=== PATIENT | male | born 1980 | race Caucasian/White ===

== ENCOUNTER 2019-03-27 19:07 | Emergency (ER) | payer OTHER, BC ==
--- NOTE | 2019-03-27 19:35 | RADIOLOGY REPORT (SQ) ---
EXAM DESCRIPTION: CHEST SINGLE VIEW COMPLETED DATE/TIME: 03/27/2019 7:25 pm REASON FOR STUDY: STROKE ALERT COMPARISON: None. EXAM PARAMETERS: NUMBER OF VIEWS: One view. TECHNIQUE: Single frontal radiographic view of the chest acquired. RADIATION DOSE: NA LIMITATIONS: None. FINDINGS: LUNGS AND PLEURA: No opacities, masses or pneumothorax. No pleural effusion. MEDIASTINUM AND HILAR STRUCTURES: No masses. Contour normal. HEART AND VASCULAR STRUCTURES: Heart normal in size. Normal vasculature. BONES: No acute findings. HARDWARE: None in the chest. OTHER: No other significant finding. IMPRESSION: NO ACUTE RADIOGRAPHIC FINDING IN THE CHEST. TECHNICAL DOCUMENTATION: JOB ID: [id number] [employer]- All Rights Reserved Reading location - IP/workstation name: [email or web address]
--- NOTE | 2019-03-27 19:37 | RADIOLOGY REPORT (SQ) ---
EXAM DESCRIPTION: CT HEAD WITHOUT COMPLETED DATE/TIME: 03/27/2019 7:26 pm REASON FOR STUDY: stroke symptoms COMPARISON: None. TECHNIQUE: Axial images acquired through the brain without intravenous contrast. Images reviewed wi th bone, brain and subdural windows. Additional sagittal and coronal reconstructions were generated. Images stored on PACS. All CT scanners at this facility use dose modulation, iterative reconstruction, and/or weight based d osing when appropriate to reduce radiation dose to as low as reasonably achievable (ALARA). [facility]: Dose Right [facility]: CareDose [facility]: Dose Right [facility]: Teradose 4D [facility]: [employer] RADIATION DOSE: CT Rad equipment meets quality standard of care and radiation dose reduction techniq ues were employed. CTDIvol: 53.2 mGy. DLP: 991 mGy-cm. mGy. LIMITATIONS: None. FINDINGS: VENTRICLES: Normal size and contour. CEREBRUM: No masses. No hemorrhage. No midline shift. No evidence for acute infarction. Normal gra y/white matter differentiation. No areas of low density in the white matter. CEREBELLUM: No masses. No hemorrhage. No alteration of density. No evidence for acute infarction. EXTRAAXIAL SPACES: No fluid collections. No masses. ORBITS AND GLOBE: No intra- or extraconal masses. Normal contour of globe without masses. CALVARIUM: No fracture. PARANASAL SINUSES: No fluid or mucosal thickening. SOFT TISSUES: No mass or hematoma. OTHER: No other significant finding. IMPRESSION: No acute intracranial pathology. No CT evidence of acute stroke or hemorrhage. EVIDENCE OF ACUTE STROKE: NO. Findings reported to the emergency department by the [facility] critical findings communication system at t he time of interpretation. COMMENT: Quality ID # 436: Final reports with documentation of one or more dose reduction techniques (e.g., Automated exposure control, adjustment of the mA and/or kV according to patient size, use of iterative reconstruction technique) TECHNICAL DOCUMENTATION: JOB ID: [id number] [employer]- All Rights Reserved Reading location - IP/workstation name: [email or web address]
--- NOTE | 2019-03-27 19:42 | ER Document Report ---
ED Medical Screen (RME) - General Chief Complaint: S/S of Possible Stroke Stated Complaint: NUMBNESS Time Seen by Provider: 03/27/19 19:31 Notes: 38-year-old male with no known medical history presents to the emergency department with acute right-sided numbness with last known normal at 1845 this evening.. Nurse asked patient to be assessed upfront. NIHSS 2 for reduced sensory on the right side and for very mild right pronator drift. Patient said he had a mild headache just prior to the symptoms. I have greeted and performed a rapid initial assessment of this patient. A comprehensive ED assessment and evaluation of the patient, analysis of test results and completion of medical decision making process will be conducted by an additional ED providers. TRAVEL OUTSIDE OF THE [place] 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
[2019-03-27 19:54] LABS: ABSOLUTE EOSINOPHILS # (AUTO) 0.1 10^3/uL (0.0-0.6); ABSOLUTE LYMPHOCYTES (AUTO) 1.9 10^3/uL (0.5-4.7); ABSOLUTE MONOCYTES (AUTO) 0.5 10^3/uL (0.1-1.4); ABSOLUTE NEUT (AUTO) 3.1 10^3/uL (1.7-8.2); BASOPHILS % (AUTO) 0.4 % (0-2); EOSINOPHILS % (AUTO) 2.1 % (0-6); HEMOGLOBIN 14.3 g/dL (13.5-17.0); LYMPHOCYTES % (AUTO) 34.1 % (13-45); MEAN CORPUSCULAR HEMOGLOBIN 27.4 pg (27.0-33.4); MEAN CORPUSCULAR HGB CONC 34.1 g/dL (32.0-36.0); MEAN CORPUSCULAR VOLUME 80 fl (80-97); MONOCYTES % (AUTO) 8.1 % (3-13); PLATELET COUNT 222 10^3/uL (150-450); RED BLOOD COUNT 5.22 10^6/uL (4.35-5.55); RED CELL DISTRIBUTION WIDTH 14.1 % (11.5-14.0); SEGMENTED NEUTROPHILS % (AUTO) 55.3 % (42-78); TOTAL CELLS COUNTED % (AUTO) 100 %; WHITE BLOOD COUNT 5.6 10^3/uL (4.0-10.5)
--- NOTE | 2019-03-27 20:06 | RADIOLOGY REPORT (SQ) ---
EXAM DESCRIPTION: CTA HEAD; CTA NECK COMPLETED DATE/TIME: 03/27/2019 7:39 pm REASON FOR STUDY: STROKE COMPARISON: Same day CT brain TECHNIQUE: Post IV contrast scanning, thin section axial imaging through the neck and brain to evalu ate the arterial structures. Source and MIP images are saved and reviewed on PACS. Advanced 3D imaging as volume-rendering, MIPs, SSD performed? yes All CT scanners at this facility use dose modulation, iterative reconstruction, and/or weight based d osing when appropriate to reduce radiation dose to as low as reasonably achievable (ALARA). [facility]: Dose Right [facility]: CareDose [facility]: Dose Right [facility]: Teradose 4D [facility]: [employer] CONTRAST TYPE AND DOSE: contrast/concentration: Isovue 350.00 mg/ml; Total Contrast Delivered: 70.0 ml; Total Saline Delivered: 65.0 ml RENAL FUNCTION: None required. The patient is less than 50 years old. RADIATION DOSE: 717 mGy cm LIMITATIONS: None. 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 The extracranial carotid and vertebral arteries are patent and normal. No significant atherosclerosis. [place]: There is a subtle, eccentric filling defect of the left intracranial internal carot id artery at the junction between the petrous an cavernous portions, suspicious for thrombus or focal dissection (series 3, image 111). The anterior, middle, posterior cerebral arteries are all patent. No evidence of aneurysm or focal stenosis. POSTERIOR CIRCULATION: The distal vertebral arteries are patent as is the basilar artery. No aneurysm . BRAIN: No gross enhancing lesions as visualized. The superior cerebral hemispheres are not included in the field of view. BONES: Intact as visualized. SINUSES: No fluid or mucosal thickening. OTHER: No other significant finding. IMPRESSION: 1. There is a subtle, eccentric filling defect of the left intracranial internal carotid artery at the junction between the petrous and cavernous portions, suspicious for thrombus or focal dissection (series 3, image 111). This can be further evaluated by invasive angiogram if desired. T his is a difficult portion of the vessel to evaluate by CT due to adjacent bony structures and streak artifact. 2. The intracranial vasculature distally is patent. No evidence of proper intracranial occlusion, s tenosis, or aneurysm. 3. Normal cervical vasculature. Findings reported by telephone to Dr. Leonard, 1953 hours, 03/27/2019. TECHNICAL DOCUMENTATION: JOB ID: [id number] Quality ID # [id number]: Final reports with documentation of one or more dose reduction techniques (e.g., Au tomated exposure control, adjustment of the mA and/or kV according to patient size, use of iterative reconstruction technique) 2010 [employer]- All Rights Reserved Reading location - IP/workstation name: [email or web address]
--- NOTE | 2019-03-27 20:06 | RADIOLOGY REPORT (SQ) ---
EXAM DESCRIPTION: CTA HEAD; CTA NECK COMPLETED DATE/TIME: 03/27/2019 7:39 pm REASON FOR STUDY: STROKE COMPARISON: Same day CT brain TECHNIQUE: Post IV contrast scanning, thin section axial imaging through the neck and brain to evalu ate the arterial structures. Source and MIP images are saved and reviewed on PACS. Advanced 3D imaging as volume-rendering, MIPs, SSD performed? yes All CT scanners at this facility use dose modulation, iterative reconstruction, and/or weight based d osing when appropriate to reduce radiation dose to as low as reasonably achievable (ALARA). [facility]: Dose Right [facility]: CareDose [facility]: Dose Right [facility]: Teradose 4D [facility]: [employer] CONTRAST TYPE AND DOSE: contrast/concentration: Isovue 350.00 mg/ml; Total Contrast Delivered: 70.0 ml; Total Saline Delivered: 65.0 ml RENAL FUNCTION: None required. The patient is less than 50 years old. RADIATION DOSE: 717 mGy cm LIMITATIONS: None. 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 The extracranial carotid and vertebral arteries are patent and normal. No significant atherosclerosis. [place]: There is a subtle, eccentric filling defect of the left intracranial internal carot id artery at the junction between the petrous an cavernous portions, suspicious for thrombus or focal dissection (series 3, image 111). The anterior, middle, posterior cerebral arteries are all patent. No evidence of aneurysm or focal stenosis. POSTERIOR CIRCULATION: The distal vertebral arteries are patent as is the basilar artery. No aneurysm . BRAIN: No gross enhancing lesions as visualized. The superior cerebral hemispheres are not included in the field of view. BONES: Intact as visualized. SINUSES: No fluid or mucosal thickening. OTHER: No other significant finding. IMPRESSION: 1. There is a subtle, eccentric filling defect of the left intracranial internal carotid artery at the junction between the petrous and cavernous portions, suspicious for thrombus or focal dissection (series 3, image 111). This can be further evaluated by invasive angiogram if desired. T his is a difficult portion of the vessel to evaluate by CT due to adjacent bony structures and streak artifact. 2. The intracranial vasculature distally is patent. No evidence of proper intracranial occlusion, s tenosis, or aneurysm. 3. Normal cervical vasculature. Findings reported by telephone to Dr. Leonard, 1953 hours, 03/27/2019. TECHNICAL DOCUMENTATION: JOB ID: [id number] Quality ID # [id number]: Final reports with documentation of one or more dose reduction techniques (e.g., Au tomated exposure control, adjustment of the mA and/or kV according to patient size, use of iterative reconstruction technique) 2010 [employer]- All Rights Reserved Reading location - IP/workstation name: [email or web address]
--- NOTE | 2019-03-27 20:14 | ER Document Report ---
ED General - General Chief Complaint: S/S of Possible Stroke Stated Complaint: NUMBNESS Time Seen by Provider: 03/27/19 19:31 TRAVEL OUTSIDE OF THE [place] IN LAST 30 DAYS: No - HPI Notes: Patient is a 38-year-old male who presents to the emergency department for evaluation. He states that at about 645 this evening, he noticed right-sided facial numbness. He admits that over the last 2 to 3 days he has had right upper and lower extremity paresthesias. He states he has a history of back surgeries in the past, that was not new, so it was not particularly concerning. He states he has sudden onset headache associated with his right-sided facial numbness, which he currently rates only a 4 out of 10. He presents to the emergency department for further evaluation. He denies any visual changes, but admits he has had visual difficulties since childhood. No difficulty speaking or swallowing. No recent injuries. - Related Data Allergies/Adverse Reactions: No Known Allergies Allergy (Verified 03/27/19 19:11) Past Medical History - General Information source: Patient - Social History Smoking Status: Never Smoker Frequency of alcohol use: Rare Drug Abuse: None Family History: Reviewed & Not Pertinent - Medical History Medical History: Negative Past Surgical History: Reports: Hx Orthopedic Surgery - Back surgery Review of Systems - Review of Systems Constitutional: No symptoms reported EENT: No symptoms reported Cardiovascular: No symptoms reported Respiratory: No symptoms reported Gastrointestinal: No symptoms reported Genitourinary: No symptoms reported Musculoskeletal: No symptoms reported Skin: No symptoms reported Neurological/Psychological: See HPI Physical Exam - Vital signs Vitals: Resp Pulse Ox 19 96 03/27/19 19:51 03/27/19 19:51 Notes: Vital signs reviewed on telemetry - Notes Notes: Vital signs reviewed, please refer to chart. Head is normocephalic, atraumatic. Pupils equal round, reactive to light. Neck is supple without meningismus. Heart is regular rate and rhythm. Lungs are clear to auscultation bilaterally. Abdomen is soft, nontender, normoactive bowel sounds throughout. Extremities without cyanosis, clubbing. Posterior calves are nontender. Peripheral pulses are equal. Skin is warm and dry. Patient is awake, alert, oriented x3. Patient has diminished sensation to light touch on the right side of the face. The remainder of cranial nerves II through XII are grossly intact without focal neurological deficits. Strength is 3+ out of 5 on the right upper extremity, as well as the right lower extremity. Sensation is diminished to light touch and pressure on the right side of the body. Positive pronator drift on the right. Reflexes reveal mild hyperreflexia on the right. Patient with intact ggbyjv-jwwz-ojoypl, rapid altering movements, mxpj-wz-uqir. Course - Re-evaluation Re-evalutation: 03/27/19 20:12 Patient presents to the emergency department for evaluation. He was initially called as a stroke alert. He was sent over for CT head, given his young age CT angiogram was ordered as well. I was contacted by radiologist Vikash gilliland, who notified me of findings concerning for dissection versus thrombus in the left internal carotid artery and the petrous and cavernous portions. Patient's deficits have not changed. He was notified of the findings and the need for intervention. I spoke with the transfer center at [facility]. Helicopter is in route. Awaiting phone call from neuro interventionalist. 03/27/19 20:[address] De Guzman, neuro interventionalist at [facility]. He gladly accepted the patient to a stroke bed. - Vital Signs Vital signs: Temp Pulse Resp BP Pulse Ox 15 141/90 H 96 03/27/19 20:01 03/27/19 19:54 03/27/19 20:01 - Laboratory Result Diagrams: 03/27/19 19:41 03/27/19 19:41 Laboratory results interpreted by me: 03/27/19 19:41 RDW 14.1 H - Diagnostic Test Radiology reviewed: Reports reviewed Radiology results interpreted by me: 03/27/19 20:13 Chest X-Ray 03/27/19 00:00 IMPRESSION: NO ACUTE RADIOGRAPHIC FINDING IN THE CHEST. Head CT 03/27/19 00:00 IMPRESSION: No acute intracranial pathology. No CT evidence of acute stroke or hemorrhage. EVIDENCE OF ACUTE STROKE: NO. Findings reported to the emergency department by the [facility] critical findings communication system at the time of interpretation. Head CTA 03/27/19 00:00 IMPRESSION: 1. There is a subtle, eccentric filling defect of the left intracra nial internal carotid artery at the junction between the petrous and cavernous portions, suspicious for thrombus or focal dissection (series 3, image 111). This can be further evaluated by invasive angiogram if desired. This is a difficult portion of the vessel to evaluate by CT due to adjacent bony structures and streak artifact. 2. The intracranial vasculature distally is patent. No evidence of proper intracranial occlusion, stenosis, or aneurysm. 3. Normal cervical vasculature. Findings reported by telephone to Dr. Leonard, 1952 hours, 03/27/2019. Neck CTA 03/27/19 00:00 IMPRESSION: 1. There is a subtle, eccentric filling defect of the left intracranial internal carotid artery at the junction between the petrous and cavernous portions, suspicious for thrombus or focal dissection (series 3, image 111). This can be further evaluated by invasive angiogram if desired. This is a difficult portion of the vessel to evaluate by CT due to adjacent bony stru ctures and streak artifact. 2. The intracranial vasculature distally is patent. No evidence of proper intracranial occlusion, stenosis, or aneurysm. 3. Normal cervical vasculature. Findings reported by telephone to Dr. Leonard, 1952 hours, 03/27/2019. - EKG Interpretation by Me Additional EKG results interpreted by me: 03/27/19 20:13 Sinus mechanism with a rate of 96 bpm. Normal axis and intervals. Nonspecific ST changes, but no acute changes concerning for ischemia or infarction. No old studies available for comparison. Discharge - Discharge Clinical Impression: CVA (cerebral vascular accident) Qualifiers: Precerebral and cerebral artery: carotid artery Laterality of affected vessel: left Condition: Stable Disposition: [facility] Admitting Provider: Dr. De Guzman
[2019-03-27 20:25] LABS: ALANINE AMINOTRANSFERASE 59 U/L (21-72); ALBUMIN 4.1 g/dL (3.5-5.0); ALKALINE PHOSPHATASE 91 U/L (38-126); ANION GAP 10 (5-19); ASPARTATE AMINO TRANSFERASE 43 U/L (17-59); BILIRUBIN,DIRECT 0.3 mg/dL (0.0-0.4); BILIRUBIN,TOTAL 0.4 mg/dL (0.2-1.3); BLOOD UREA NITROGEN 15 mg/dL (7-20); CALCIUM 8.7 mg/dL (8.4-10.2); CARBON DIOXIDE 25 mmol/L (22-30); CHLORIDE 104 mmol/L (98-107); CREATINE KINASE 249 U/L (55-170); GLUCOSE 163 mg/dL (75-110); POTASSIUM 3.7 mmol/L (3.6-5.0); SODIUM 139.4 mmol/L (137-145); TOTAL PROTEIN 6.9 g/dL (6.3-8.2)
[2019-03-27 20:31] VITALS: BP 147/95
--- NOTE | 2019-03-27 21:57 | EKG REPORT ---
SEVERITY:- ABNORMAL ECG - SINUS RHYTHM PROBABLE LEFT ATRIAL ABNORMALITY BORDERLINE T ABNORMALITIES, INFERIOR LEADS IVCD : Confirmed by: Marques Woodall MD 27-Mar-2019 21:56:57
== END 2019-03-27 20:46 | disposition short-term general hospital (02) ==
LOC: ER 19:07
DX: I63.89 Other cerebral infarction (principal); R20.2 Paresthesia of skin
CPT/HCPCS: 36415; 70450; 70496; 70498; 71045; 80053; 82550; 84484; 85025; 93005; 93010; 99285